=== PATIENT | male | born 1955 | race Caucasian/White ===

== ENCOUNTER 2020-09-14 17:43 | Emergency (ER) | payer OTHER, BC ==
[2020-09-14 17:56] VITALS: BP 130/84; PULSE 56
[2020-09-14] MEDS ORDERED: Ketorolac 30 MG/ML SDV IM ONE (18:09)
--- NOTE | 2020-09-14 18:14 | EDM.PDOC ---
ED HPI GENERAL MEDICAL PROBLEM - General Chief Complaint: Lower Extremity Injury/Pain Stated Complaint: INJURY TO KNEE Time Seen by Provider: 09/14/20 17:55 Source of Information: Reports: Patient History Limitations: Reports: No Limitations - History of Present Illness INITIAL COMMENTS - FREE TEXT/NARRATIVE: Darnell is a 64 year old male who presents to ER with complaints of right knee pain. 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 Licking a large popping sound and had a fair amount of pain. Not able to flex or straighten his knee easily, has pain with weight bearing and noted almost immediate swelling. Does relate also twisted his knee 3 weeks ago but didn't have this type of pain or limitation. Onset: Today, Sudden Duration: Hour(s):, Constant Location: Reports: Lower Extremity, Right Quality: Reports: Throbbing Severity: Severe Improves with: Reports: Rest Worsens with: Reports: Movement Context: Reports: Trauma Associated Symptoms: Reports: No Other Symptoms Right Knee Pain Score (Numeric/FACES): 10 - Related Data Allergies Allergy/AdvReac Type Severity Reaction Status Date / Time No Known Allergies Allergy Verified 09/14/20 17:55 Home Meds: Home Meds . [No Known Home Meds] 09/14/20 [History] Past Medical History - Past Health History Medical/Surgical History: Denies Medical/Surgical History Social & Family History - Tobacco Use Tobacco Use Status *Q: Never Tobacco User Review of Systems - Review of Systems Review Of Systems: See Below Constitutional: Reports: No Symptoms Respiratory: Reports: No Symptoms Cardiovascular: Reports: No Symptoms GI/Abdominal: Reports: No Symptoms Musculoskeletal: Reports: Leg Pain, Joint Pain Skin: Reports: Other (swelling to right knee) Neurological: Reports: No Symptoms ED EXAM, GENERAL - Physical Exam Exam: See Below Exam Limited By: No Limitations General Appearance: Alert, WD/WN, Mild Distress Neck: Normal Inspection, Supple, Non-Tender Respiratory/Chest: No Respiratory Distress, Lungs Clear, Normal Breath Sounds Cardiovascular: Regular Rate, Rhythm Extremities: Limited Range of Motion (pain with full extension of knee. Pain with abduction. No appreciable laxity but unable to fully evaluate due to pain. Moderate amount of swelling noted. ) Neurological: Alert, Oriented Skin Exam: Warm, Dry Course - Vital Signs Last Recorded V/S: Last Vital Signs Temp 98.0 F 09/14/20 17:43 Pulse 56 L 09/14/20 17:43 Resp 18 09/14/20 17:43 BP 130/84 09/14/20 17:43 Pulse Ox 97 09/14/20 17:43 - Orders/Labs/Meds Meds: Medications Discontinued Medications Generic Name Dose Route Start Last Admin Trade Name Osito PRN Reason Stop Dose Admin Ketorolac Tromethamine 30 mg 09/14/20 18:09 09/14/20 18:26 Ketorolac 30 Mg/Ml Sdv IM 09/14/20 18:10 30 mg ONETIME ONE Administration - Re-Assessments/Exams Free Text/Narrative Re-Assessment/Exam: 09/14/20 19:13 Xrays negative. Immobilizer placed on. Advised to weight bear as tolerated. use crutches. Consult with YULIA Howell in am in regards to arranging MRI. Departure - Departure Time of Disposition: 19:14 Disposition: Home, Self-Care 01 Condition: Good Clinical Impression: Knee sprain Qualifiers: Encounter type: initial encounter Laterality: right - Discharge Information *PRESCRIPTION DRUG MONITORING PROGRAM REVIEWED*: No *COPY OF PRESCRIPTION DRUG MONITORING REPORT IN PATIENT PERRY: No Instructions: Knee Sprain, Adult, [id number] Referrals: PCP,None [Primary Care Provider] - Forms: ED Department Discharge Additional Instructions: 1. Rest 2. Elevate knee 3. Ice frequently tonight 4. Immobilizer for support 5. Weight bear as tolerated. 6. [place] 5/325~ 1-2 days as needed for pain 7. Ibuprofen 600 mg every 6 hours for inflammation/swelling 8. Call Ifeanyi Carrera in am to arrange for possible MRI Sepsis Event Note (ED) - Evaluation Sepsis Screening Result: No Definite Risk - Focused Exam Vital Signs: Vital Signs Temp Pulse Resp BP Pulse Ox 09/14/20 17:43 98.0 F 56 L 18 130/84 97
--- NOTE | 2020-09-14 19:06 | CR ---
[id number] RAD/RAD Knee Right 3V EXAM: RAD Knee Right 3V CLINICAL DATA: TRAUMA COMPARISON: No previous similar exam is available. FINDINGS: No fracture or dislocation is seen. There is no radiopaque foreign body in the soft tissues. There is no air in the soft tissues. There is no cortical thickening or periosteal reaction either. IMPRESSION: NEGATIVE PLAIN FILM EXAM. Zac Landers MD 09/14/20 [id number] Thank you for allowing us to participate in the care of your patient.
[2020-09-14] MEDS ORDERED: Take Home: Acetaminophen/HYDROcodone 325-5 MG, 5 Tab Pack PO ONE (19:12)
== END 2020-09-14 19:40 | disposition home or self-care (01) ==
LOC: VM.ED 17:43
DX: S83.91XA Sprain of unspecified site of right knee, initial encounter (principal); X50.1XXA Overexertion from prolonged static or awkward postures, initial encounter
CPT/HCPCS: 73562-RT; 96372; 99283-25; A9270-GY; J1885